=== PATIENT | male | born 1990 | race Two or more races ===

== ENCOUNTER 2016-07-08 16:21 | Emergency (ER) | payer SELFPAY ==
[2016-07-08 16:31] VITALS: BP 126/68
--- NOTE | 2016-07-08 16:41 | PHYS DOC ---
Past Medical History Past Medical History: No Pertinent History Past Surgical History: Other Additional Past Surgical Histo: left shoulder Alcohol Use: Occasionally Drug Use: Marijuana, Methamphetamine Adult General Chief Complaint Chief Complaint: FOOT INJURY PAIN HPI HPI Patient is a 25 year old male presents to the emergency department with a history of stepping on a nail at 11 AM today. Patient states he pulled the nail out but has continued to have pain. Patient states his tetanus immunization is up to date. No bleeding noted at the site. No discoloration noted. Review of Systems Review of Systems Constitutional: Denies fever or chills [] Eyes: Denies change in visual acuity, redness, or eye pain [] HENT: Denies nasal congestion or sore throat [] Respiratory: Denies cough or shortness of breath [] Cardiovascular: No additional information not addressed in HPI [] GI: Denies abdominal pain, nausea, vomiting, bloody stools or diarrhea [] : Denies dysuria or hematuria [] Musculoskeletal: Denies back pain or joint pain [] Integument: Denies rash or skin lesions. Puncture wound left foot Neurologic: Denies headache, focal weakness or sensory changes [] Endocrine: Denies polyuria or polydipsia [] Current Medications Current Medications Current Medications Medications (Trade) Dose Ordered Sig/Madeleine Start Time Stop Time Status Last Admin Dose Admin Ibuprofen (Motrin) 800 mg 1X ONCE 07/08/16 16:45 07/08/16 16:46 DC 07/08/16 16:45 800 MG Allergies Allergies Allergies Coded Allergies Type Severity Reaction Last Updated Verified No Known Drug Allergies 08/03/15 No Physical Exam Physical Exam Constitutional: Well developed, well nourished, no acute distress, non-toxic appearance. [] HENT: Normocephalic, atraumatic, bilateral external ears normal, oropharynx moist, no oral exudates, nose normal. [] Eyes: PERRLA, EOMI, conjunctiva normal, no discharge. [] Neck: Normal range of motion, no tenderness, supple, no stridor. [] Cardiovascular:Heart rate regular rhythm Lungs & Thorax: no respiratory distress noted Skin: Warm, dry, no erythema, no rash. Puncture wound noted on 4th metatarsal area on the bottom of the left foot Back: No tenderness Extremities: No tenderness, no cyanosis, no clubbing, ROM intact, no edema. Peripheral pulses 2+ cap refill brisk < 2 seconds. Neurologic: Alert and oriented X 3, normal motor function, normal sensory function, no focal deficits noted. [] Psychologic: Affect normal, judgement normal, mood normal. [] Current Patient Data Vital Signs Vital Signs Date Time Temp Pulse Resp B/P (MAP) Pulse Ox O2 Delivery O2 Flow Rate FiO2 07/08/16 16:31 98.3 76 20 100 Room Air 98.3 EKG EKG [] Radiology/Procedures Radiology/Procedures [[facility] [address] [place] [address] IMAGING REPORT Signed PATIENT: JAKE CHAN V ACCOUNT: [id number] : 1990 LOCATION: ER AGE: 25 SEX: M EXAM STATUS: REG ER ORD. PHYSICIAN: DIONISIO DAVIS APRN REASON: left foot injury and pain PROCEDURE: FOOT LEFT 3V Examination: 3 views of the left foot History: History of puncture wound in the plantar aspect of the foot Comparison: None available. Findings: The alignment of the tarsal bones grossly appears unremarkable. There is no acute fracture or dislocation identified. Small possible puncture wound identified in the plantar aspect of the foot, best seen on the lateral view at the level of the metatarsal head. Impression: 1. No acute osseous findings. 2. Small possible puncture wound identified in the plantar aspect of the foot, best seen on the lateral view at the level of the metatarsal head. DICTATED and SIGNED BY: DENISE CORDOVA MD DATE: 07/08/16 2849 CC: DIONISIO DAVIS APRN; NO PCP; NON,STAFF ~ ] Course & Med Decision Making Course & Med Decision Making Pertinent Labs and Imaging studies reviewed. (See chart for details) The foot was soaked in Betadine and cleaned with Betadine brush. Patient will be placed on Cipro and discharged home with recommendations to keep the area clean and dry. Clean the site twice daily with soap and water. Signs and symptoms of infection was provided to patient as well as signs and symptoms to return back to emergency department. Patient will be discharged home in stable condition. Recommended Tylenol and ibuprofen for pain and discomfort ice packs on 20 minutes off 20 minutes several times a day elevation as much as possible. Patient agrees with discharge instructions treatment regimens and follow-up recommendations. [] Dragon Disclaimer Dragon Disclaimer This electronic medical record was generated, in whole or in part, using a voice recognition dictation system. Departure Departure Impression: Primary Impression: Puncture wound of left foot Disposition: HOME, SELF-CARE Condition: STABLE Referrals: NO PCP (PCP) Patient Instructions: Puncture Wound, [id number] Additional Instructions: Activity as tolerated Tylenol or Ibuprofen for pain and discomfort Ice packs on 20 minutes and off 20 minutes several time a day Elevation as much as possible Keep the area clean and dry. Clean the site with soap and water twice a day and apply antibiotic ointment to the area twice a day Followup with primary care provider in 3-5 days Return to emergency department for signs and symptoms that become worse. Scripts Ciprofloxacin Hcl (CIPRO) 500 Mg Tablet 1 TAB PO BID, #14 TAB Prov: DIONISIO DAVIS APRN 07/08/16 DIONISIO DAVIS APRN July 08, 2016 16:41
[2016-07-08] MEDS ORDERED: IBUPROFEN 800 MG TABLET. PO ONE (16:45)
[2016-07-08] MEDS ORDERED: CIPR500T94 PO (16:47)
--- NOTE | 2016-07-08 17:01 | RAD ---
Examination: 3 views of the left foot History: History of puncture wound in the plantar aspect of the foot Comparison: None available. Findings: The alignment of the tarsal bones grossly appears unremarkable. There is no acute fracture or dislocation identified. Small possible puncture wound identified in the plantar aspect of the foot, best seen on the lateral view at the level of the metatarsal head. Impression: 1. No acute osseous findings. 2. Small possible puncture wound identified in the plantar aspect of the foot, best seen on the lateral view at the level of the metatarsal head.
== END 2016-07-08 17:11 | disposition home or self-care (01) ==
LOC: ER 16:42
DX: S91.332A Puncture wound without foreign body, left foot, initial encounter (principal); F12.10 Cannabis abuse, uncomplicated; F15.10 Other stimulant abuse, uncomplicated; W22.8XXA Striking against or struck by other objects, initial encounter; Y93.89 Activity, other specified; Y99.8 Other external cause status; Y92.89 Other specified places as the place of occurrence of the external cause
CPT/HCPCS: 73630; 99284

== ENCOUNTER 2017-04-23 20:15 | Emergency (ER) | payer BC | END 2017-04-23 22:08 | disposition home or self-care (01) | LOC: ER 20:15 | DX: S62.314A Displaced fracture of base of fourth metacarpal bone, right hand, initial encounter for closed fracture (principal); S40.812A Abrasion of left upper arm, initial encounter; F12.10 Cannabis abuse, uncomplicated; F15.10 Other stimulant abuse, uncomplicated; Y08.89XA Assault by other specified means, initial encounter; Y93.89 Activity, other specified; Y99.8 Other external cause status; Y92.89 Other specified places as the place of occurrence of the external cause | CPT/HCPCS: 29125; 73130; 99284-25 ==